=== PATIENT | male | born 1960 | race Two or more races ===

== ENCOUNTER 2021-01-19 08:55 | Day surgery (SDC) | payer OTHER ==
[~2021-01-19 08:55] MED LIST: CLONAZEPAM1 MG PO; CLONAZEPAM2 MG PO; GLIPIZIDE ER2.5 MG PO; LIPOFEN150 MG PO; PAXIL30 MG PO; RESTORIL30 M1 PO; VASOTEC20 M1 PO
== END 2021-01-19 13:40 | disposition home or self-care (01) ==
LOC: CIR.AMB 08:55
PROVIDERS: ATTEND Orthopaedic Surgery
DX: M75.121 Complete rotator cuff tear or rupture of right shoulder, not specified as traumatic (principal)